=== PATIENT | male | born 1975 | race Caucasian/White ===

== ENCOUNTER 2017-08-11 19:57 | Emergency (ER) | payer MEDICAID ==
[~2017-08-11] VITALS: Ht 165.1 cm; Wt 73.6 kg
[2017-08-11] MEDS ORDERED: DEXAMETHASONE SOD PHOS 4 MG/ML 5 ML VIAL IM ONE (22:00)
[2017-08-11] MEDS ORDERED: HYDROCODONE/ACETAMINOPHEN 5-325 MG TABLET PO ONE (22:00)
[2017-08-11] MEDS ORDERED: PENICILLIN G BENZATHINE LA 1,200,000 UNITS/2 ML SYRINGE IM ONE (22:00)
[2017-08-11 22:14] LABS: INFLUENZA TYPE A NEGATIVE FOR TYPE A (NEGATIVE); INFLUENZA TYPE B NEGATIVE FOR TYPE B (NEGATIVE)
[2017-08-11 22:50] VITALS: BP 127/84
== END 2017-08-11 23:00 | disposition home or self-care (01) ==
LOC: EMS 20:01
DX: J03.90 Acute tonsillitis, unspecified (principal); Z87.891 Personal history of nicotine dependence
CPT/HCPCS: 87804; 96372; 99284; J0561; J1100

== ENCOUNTER 2022-01-31 03:11 | Emergency (ER) | payer MEDICAID ==
[~2022-01-31] VITALS: Ht 160 cm; Wt 70.5 kg
[2022-01-31 03:58] LABS: COVID AG,FIA SOURCE NASAL SWAB
[2022-01-31] MEDS ORDERED: AMOX TR/POT CLAV 400/57.5 MG/5 ML SUSPENSION ORAL.SYG PO ONE (04:45)
[2022-01-31] MEDS ORDERED: DEXAMETHASONE SOD PHOS 4 MG/ML 5 ML VIAL IM ONE (04:45)
[2022-01-31] MEDS ORDERED: KETOROLAC TROMETHAMINE 60 MG/2 ML VIAL IM ONE (04:45)
[2022-01-31] MEDS ORDERED: AMOX1TAB16 PO (04:48)
[2022-01-31] MEDS ORDERED: TRAM50TA4 PO (04:48)
[2022-01-31 05:19] VITALS: BP 122/76
== END 2022-01-31 05:21 | disposition home or self-care (01) ==
LOC: EMS 03:12
DX: J36 Peritonsillar abscess (principal); J02.9 Acute pharyngitis, unspecified; Z20.822 Contact with and (suspected) exposure to COVID-19
CPT/HCPCS: 99284; 87426; 87430; 96372; J1100; J1885

== ENCOUNTER 2023-02-15 18:06 | Emergency (ER) | payer MEDICAID ==
[~2023-02-15] VITALS: Ht 157.5 cm; Wt 79.5 kg
[~2023-02-15 18:06] MED LIST: AMOX1TAB16 PO; TRAM-559 PO
[2023-02-15 18:18] VITALS: BP 113/68; PULSE 68; RESP 16; TEMP 97.9
[2023-02-15] MEDS ORDERED: AMOX1TAB16 PO (19:05)
== END 2023-02-15 19:24 | disposition home or self-care (01) ==
LOC: EMS 18:06
DX: H66.91 Otitis media, unspecified, right ear (principal)
CPT/HCPCS: 99283; Z7502